=== PATIENT | female | born 1985 | race African-American/Black ===

== ENCOUNTER 2017-07-09 10:47 | Emergency (ER) | payer OTHER ==
[~2017-07-09] VITALS: Ht 177.8 cm; Wt 81.6 kg
--- NOTE | ~2017-07-09 | EKG ---
PATIENT: RITA BETTS UNIT #: [id number] Ventricular Rate: 87 BPM Atrial Rate: 87 BPM P-R Interval: 124 ms QRS Duration: 88 ms Q-T Interval: 372 ms QTC Calculation(Bezet): 447 ms P [place]: 40 degrees Calculated R [place]: 14 degrees Calculated T [place]: 21 degrees Diagnosis Line: Normal sinus rhythm Diagnosis Line: Normal ECG Diagnosis Line: No previous ECGs available Diagnosis Line: Confirmed by SATYA BHATIA MD ([id number]) on 07/10/2017 Diagnosis Line: 3:06:23 PM INTERPRETING MD: JANNETTE CHAWLA
[2017-07-09 11:31] LABS: EOSINOPHIL# 0.1 X10e3 (0-0.7); EOSINOPHIL% 1.4 % (0.0-7.0); HEMATOCRIT 42.1 % (35.0-45.0); HEMOGLOBIN 14.2 gm/dL (12.0-16.0); LYMPHOCYTE# 1.1 X10e3 (1.0-3.5); LYMPHOCYTE% 27.2 % (17.0-45.0); MEAN CELL VOLUME 94.1 FL (83-96); MEAN CORPUSCULAR HEMOGLOBIN 31.8 PG (28-34); MEAN CORPUSCULAR HGB CONC 33.8 g/dL (30-36); MEAN PLATELET VOLUME 8.2 FL (6.5-11.5); MONOCYTE# 0.5 X10e3 (0-1.0); MONOCYTE% 12.9 % (3.0-12.0); NEUTROPHIL# 2.4 X10e3 (1.5-7.1); NEUTROPHIL% 57.5 % (40-75); PLATELET COUNT 244 X10e3 (140-420); RED BLOOD COUNT 4.47 X10e (3.90-5.30); RED CELL DISTRIBUTION WIDTH 14.7 % (11.0-15.5); WHITE BLOOD COUNT 4.2 X10e3 (4.0-10.5)
[2017-07-09 11:41] LABS: DIFF IND NO
[2017-07-09 11:55] LABS: ACETAMINOPHEN <10 ug/mL; ALBUMIN SERUM 4.2 g/dL (3.5-5.0); ALCOHOL BLOOD <5 mg/dL (0); ALKALINE PHOSPHATASE 93 U/L (32-92); ALT (SGPT) 21 U/L (10-40); AST (SGOT) 25 U/L (10-42); BILIRUBIN, DIRECT <0.1 mg/dL (0.0-0.2); BILIRUBIN,INDIRECT 0.3 mg/dL (0.0-0.9); BILIRUBIN,TOTAL 0.4 mg/dL (0.2-2.0); BLOOD UREA NITROGEN 15 mg/dL (9-23); BUN/CREATININE RATIO 21.42; CALCIUM SERUM 9.2 mg/dL (8.4-10.2); CARBON DIOXIDE 23 mmol/L (22-31); CHLORIDE 105 mmol/L (100-111); CREATININE SERUM 0.7 mg/dL (0.6-1.4); GLOM FILT RATE Estimated 134.8 mL/min (>60); GLUCOSE FASTING 66 mg/dL (70-110); POTASSIUM 4.3 mmol/L (3.5-5.1); PROTEIN TOTAL SERUM 8.9 g/dL (6.0-8.3); SALICYLATE <4.0 mg/dL; SODIUM 138 mmol/L (135-145)
[2017-07-09 12:24] LABS: AMPHETAMINE NEG (NEG); BARBITURATES NEG (NEG); BENZODIAZEPINES NEG (NEG); COCAINE NEG (NEG); MARIJUANA NEG (NEG); OPIATES NEG (NEG); TRICYCLIC ANTIDEPRESSANTS NEG (NEG); U METHADONE NEG (NEG)
[2017-07-09 13:09] LABS: POC - CKMB <1.0 ng/mL (0.0-7.9); POC - TROPONIN <0.05 ng/mL (<=0.05)
[2017-07-09 13:20] LABS: URINE SOURCE CLEAN CATCH
[2017-07-09 13:30] LABS: URINE APPEARANCE TURBID; URINE BILIRUBIN NEG (NEG); URINE BLOOD NEG (NEG); URINE COLOR YELLOW; URINE GLUCOSE NEG (NEG); URINE KETONE 1+ (NEG); URINE LEUKOCYTE ESTERASE NEG (NEG); URINE NITRATE NEG (NEG); URINE PROTEIN TRACE (NEG); URINE SPECIFIC GRAVITY 1.027 (1.003-1.035)
[2017-07-09 13:36] LABS: CULTURE INDICATED? NO
== END 2017-07-09 14:19 | disposition home or self-care (01) ==
LOC: CED 10:47
PROVIDERS: Emergency Medicine
DX: R53.1 Weakness (principal); F41.9 Anxiety disorder, unspecified; F17.200 Nicotine dependence, unspecified, uncomplicated
CPT/HCPCS: 36415; 80048; 80076; 80307; 81003; 82553; 82947; 84484; 85025; 93005; 99284; G0480